=== PATIENT | male | born 1980 | race Hispanic/Latino ===

== ENCOUNTER 2019-11-01 21:50 | Emergency (ER) | payer OTHER ==
[~2019-11-01] VITALS: Ht 170.2 cm; Wt 90.0 kg
[~2019-11-01 21:50] MED LIST: NO
[2019-11-01] MEDS ORDERED: VOLTAREN - GENE75 MG PO (23:19)
[2019-11-01 23:35] VITALS: BP 141/85
== END 2019-11-01 23:35 | disposition home or self-care (01) | DRG 605 ==
LOC: EDBD 21:50 → ED 21:50
DX: S80.02XA Contusion of left knee, initial encounter (principal); S80.01XA Contusion of right knee, initial encounter; V53.5XXA Driver of pick-up truck or van injured in collision with car, pick-up truck or van in traffic accident, initial encounter